=== PATIENT | male | born 1975 | race Caucasian/White ===

== ENCOUNTER 2018-02-12 11:24 | Observation (INO) | payer BC ==
[2018-02-12] VITALS (11 sets, daily range): BP systolic 101–130; BP diastolic 66–83; PULSE 80–93; TEMP 98.4
[~2018-02-12] VITALS: Ht 175.3 cm; Wt 92.8 kg
[2018-02-12] MEDS ORDERED: COLACE 100100 MG/CAP PO (11:59)
[2018-02-13 01:07] VITALS: BP 120/66; PULSE 95; TEMP 98.5
[2018-02-13 04:38] VITALS: BP 109/57; PULSE 86; TEMP 97.8
[2018-02-13 08:00] VITALS: BP 117/65; PULSE 75; TEMP 98.1
[2018-02-13] MEDS ORDERED: NORCO 325 MG-51 TAB PO (08:24)
== END 2018-02-13 09:00 | disposition home or self-care (01) ==
LOC: JCC 11:24
DX: K35.80 Unspecified acute appendicitis (principal); Q44.6 Cystic disease of liver; Z98.52 Vasectomy status; Z87.891 Personal history of nicotine dependence
CPT/HCPCS: G0378; J0330; J0696; J1100; J1885; J2405; J2704; J3010; J7120

== ENCOUNTER → 2018-02-12 | Outpatient (CLI) | payer BC ==
[~2018-02-12] MED LIST: COLACE 100100 MG/CAP PO; NORCO 325 MG-51 TAB PO
[2018-02-12 10:14] LABS: HEMATOCRIT 46.6 % (42.0-52.0); HEMOGLOBIN 15.9 g/dl (13.5-18.0); MEAN CELL VOLUME 89 fl (80.0-100.0); MEAN CORPUSCULAR HEMOGLOBIN 31 pg (27.0-31.0); MEAN CORPUSCULAR HGB CONC 34 g/dl (33.0-37.0); MEAN PLATELET VOLUME 11.1 fl (7.4-10.4); PLATELET COUNT 163 K/mm3 (130-400); RED BLOOD COUNT 5.22 M/mm3 (4.20-5.60); REDCELL DISTRIBUTION WIDTH-CV 12.6 % (11.5-14.5)
[2018-02-12 10:21] LABS: ALBUMIN 4.6 gm/dL (3.5-5.0); BILIRUBIN,TOTAL 1.2 mg/dL (0.0-1.0); CALCIUM 9.4 mg/dL (8.4-10.2); CREATININE, serum 0.73 mg/dL (0.66-1.25); POTASSIUM 4.5 mmol/L (3.4-5.0)
== END ==
LOC: COL.RAD 09:20 → COL.LAB 09:20 → COL.RAD 15:00
PROVIDERS: Family Medicine
DX: K38.8 Other specified diseases of appendix (principal); K36 Other appendicitis; K80.20 Calculus of gallbladder without cholecystitis without obstruction; K57.30 Diverticulosis of large intestine without perforation or abscess without bleeding
CPT/HCPCS: Q9967